=== PATIENT | female | born 1990 | race Caucasian/White ===

== ENCOUNTER 2016-08-01 16:19 | Emergency (ER) | payer OTHER ==
[~2016-08-01] VITALS: Ht 160 cm; Wt 160.0 kg
[~2016-08-01 16:19] MED LIST: BCPILLS PO; LORA-741 PO
[2016-08-01 16:29] VITALS: Ht 160 cm; Wt 160.0 kg
[2016-08-01] MEDS ORDERED: DiphenhydrAMINE HCL 50 MG/ML VIAL IV STA (16:47)
[2016-08-01] MEDS ORDERED: KETOROLAC TROMETHAMINE 30 MG/ML VIAL IV STA (16:47)
[2016-08-01] MEDS ORDERED: PROCHLORPERAZINE 5 MG/ML 2 ML VIAL IV STA (16:47)
[2016-08-01] MEDS ORDERED: SODIUM CHLORIDE 0.9% 1000ML 1,000 ML IV STA (16:47)
[2016-08-01] MEDS ORDERED: ASPI-391 PO (17:18)
[2016-08-01 17:22] LABS: BASO % 0.3 %; BASO ABS # 0.03 K/uL (0-0.2); COMPLETE YES; EOS % 1.1 %; IG% 0.5 %; LYMPH % 28.8 %; LYMPH ABS # 3.41 K/uL (1.2-3.4); MEAN CELL VOLUME 81.7 fL (80-100); MEAN CORPUSCULAR HEMOGLOBIN 28.1 pg (25-34); MEAN CORPUSCULAR HGB CONC 34.4 g/dl (32-36); MEAN PLATELET VOLUME 10.5 fL (7.4-10.4); MONO % 5.4 %; NEUT % 63.9 %; PLATELET COUNT 214 K/uL (130-400); RED BLOOD COUNT 4.16 M/uL (4.2-5.4); WHITE BLOOD COUNT 11.84 K/uL (4.8-10.8)
--- NOTE | 2016-08-01 17:36 | DIAGNOSTIC IMAGING REPORT ---
HEAD CT NONCONTRAST CT DOSE: 623.48 mGy.cm HISTORY: Mental status change trouble talking w/ tang TECHNIQUE: Multiaxial CT images of the head were performed without the use of intravenous contrast. Comparison: 04/19/2016 Findings: The paranasal sinuses and mastoid air cells are clear. The calvarium and skull base are intact. The ventricles and sulci are within normal limits. There is no mass, hematoma, midline shift, or acute infarct. Impression: No acute intracranial abnormality. Electronically signed by: Howard Manriquez M.D. 08/01/2016 5:34 PM Dictated Date/Time: 08/01/2016 5:34 PM
[2016-08-01 17:40] LABS: BUN/CREATININE RATIO 18.9 (10-20); CALCIUM 8.8 mg/dl (8.5-10.1); CREATININE 0.61 mg/dl (0.60-1.20); POTASSIUM 3.6 mmol/L (3.5-5.1)
--- NOTE | 2016-08-01 18:22 | DIAGNOSTIC IMAGING REPORT ---
Brain MRI WITHOUT CONTRAST HISTORY: Mental status change blurry vison SALGUERO TECHNIQUE: Multiplanar multisequence MRI of the brain was performed without the use of contrast. COMPARISON STUDY: CT brain same date FINDINGS: There are no areas of restricted diffusion to suggest acute infarction. The midline structures are intact. The paranasal sinuses are clear. The mastoid air cells are clear. The ventricles and sulci are within normal limits for age. There is no mass, hematoma, midline shift. The major vascular flow-voids at the skull base are well maintained. IMPRESSION: No acute intracranial abnormality. Electronically signed by: Howard Manrqiuez M.D. 08/01/2016 6:20 PM Dictated Date/Time: 08/01/2016 6:15 PM
--- NOTE | 2016-08-01 18:22 | DIAGNOSTIC IMAGING REPORT ---
CHEST ONE VIEW PORTABLE CLINICAL HISTORY: blurry vision mental status change COMPARISON STUDY: No previous studies for comparison. FINDINGS: The bones soft tissues and hemidiaphragms are normal. The cardiomediastinal silhouette is normal. The lungs are clear. The pulmonary vasculature is normal. IMPRESSION: Negative chest. Electronically signed by: Howard Manriquez M.D. 08/01/2016 6:21 PM Dictated Date/Time: 08/01/2016 6:21 PM
[2016-08-01 19:37] VITALS: BP 145/91; PULSE 65; TEMP 36.5; O2SAT 98
--- NOTE | 2016-08-01 21:48 | EMERGENCY ROOM VISIT NOTE ---
History Report prepared by Audi: Ricky Tucker Under the Supervision of: Dr. Deejay Seymour D.O. First contact with patient: 16:33 Chief Complaint: HEADACHE Stated Complaint: HEADACHE, NAUSEA, HARD TO FOCUS, FELLS HOT History of Present Illness The patient is a 25 year old female who presents to the Emergency Room with complaints of a constant headache starting about 9-10 days ago. The headache is located on the top of her head. She has worsening pain with coughing and deep breathing. She has taken Ibuprofen, Excedrin, and Toradol without relief. She also felt flushed and had some vision problems about 6 and a half hours ago which lasted for about 30-40 minutes. She never lost her vision but notes that it became narrow. She reports nausea but denies vomiting. As per family member , the patient also had some slurred speech. The patient currently feels at baseline. She currently only complains of the headache. Pt denies recent travels , fevers, loss of vision, trouble swallowing, blood in cough, neck pain, chest pain, shortness of breath, diarrhea, pain with urination, melena, tingling, weakness, and numbness. She has a history of Temple's palsy. She has not taken control medication for the past month. No previous blood clots. Headache did come on gradually and gradually worsened. Source of History: patient Onset: about 9-10 days ago Position: head Timing: constant Modifying Factors (Worsening): breathing (deep), other (cough) Modifying Factors (Relieving): ibuprofen (without relief), other (Excedrin, and Toradol without relief) Associated Symptoms: + nausea, No SOB, No chest pain, No diarrhea, No fevers , No neck pain, No numbness, No vomiting, No weakness Review of Systems See HPI for pertinent positives & negatives. A total of 10 systems reviewed and were otherwise negative. Past Medical & Surgical Medical Problems: (1) Abnormal vaginal bleeding (2) Temple's palsy (3) Dysfunctional uterine bleeding Surgical Problems: (1) History of appendectomy Family History Diabetes mellitus FH: cancer FH: gallbladder disease FH: heart disease FH: lung disease Hypertension Kidney stones Social History Smoking Status: Current Every Day Smoker Alcohol Use: occasionally Marital Status: single Occupation Status: employed Current/Historical Medications Scheduled PRN Hzttogv-Wwqldgfbksvwa-Eqnpujil (Excedrin Extra Strength), 3 TABS PO Q8 PRN for Pain Allergies Coded Allergies: Adhesives (Verified Allergy, Unknown, ., 04/19/16) Physical Exam Vital Signs Date Time Temp Pulse Resp B/P Pulse Ox O2 Delivery O2 Flow Rate FiO2 08/01/16 19:37 36.5 65 18 145/91 98 08/01/16 19:18 65 18 145/91 98 Room Air 08/01/16 16:29 36.5 65 18 158/96 98 Room Air Physical Exam GENERAL: Sitting up in bed, disheveled, alert, well appearing, well nourished, no distress, non-toxic EYE EXAM: normal conjunctiva, PERRL and EOM's intact OROPHARYNX: no exudate, no erythema, lips, buccal mucosa, and tongue normal and mucous membranes are moist NECK: supple, no nuchal rigidity, no adenopathy, non-tender LUNGS: Clear to auscultation. Normal chest wall mechanics HEART: no murmurs, S1 normal and S2 normal ABDOMEN: abdomen soft, non-tender, normo-active bowel sounds, no masses, no rebound or guarding. BACK: Back is symmetrical on inspection and there is no deformity, no midline tenderness, no CVA tenderness. SKIN: no rashes and no bruising UPPER EXTREMITIES: upper extremities are grossly normal. LOWER EXTREMITIES: No pitting edema. NEURO EXAM: Normal sensorium, cranial nerves II-XII intact, normal speech, no weakness of arms, no weakness of legs. No drift. Finger to nose intact. Gross sensation intact. Medical Decision & Procedures ER Provider Diagnostic Interpretation: Xray results per the radiologist and my interpretation. CT and MRI results have been interpreted by the radiologist and reviewed by me. Brain MRI WITHOUT CONTRAST HISTORY: Mental status change blurry vison SALGUERO TECHNIQUE: Multiplanar multisequence MRI of the brain was performed without the use of contrast. COMPARISON STUDY: CT brain same date FINDINGS: There are no areas of restricted diffusion to suggest acute infarction. The midline structures are intact. The paranasal sinuses are clear. The mastoid air cells are clear. The ventricles and sulci are within normal limits for age. There is no mass, hematoma, midline shift. The major vascular flow-voids at the skull base are well maintained. IMPRESSION: No acute intracranial abnormality. Electronically signed by: Howard Manriquez M.D. 08/01/2016 6:20 PM Dictated Date/Time: 08/01/2016 6:15 PM CHEST ONE VIEW PORTABLE CLINICAL HISTORY: blurry vision mental status change COMPARISON STUDY: No previous studies for comparison. FINDINGS: The bones soft tissues and hemidiaphragms are normal. The cardiomediastinal silhouette is normal. The lungs are clear. The pulmonary vasculature is normal. IMPRESSION: Negative chest. Electronically signed by: Howard Manriquez M.D. 08/01/2016 6:21 PM Dictated Date/Time: 08/01/2016 6:[address] CT DOSE: 623.48 mGy.cm HISTORY: Mental status change trouble talking w/ salguero TECHNIQUE: Multiaxial CT images of the head were performed without the use of intravenous contrast. Comparison: 04/19/2016 Findings: The paranasal sinuses and mastoid air cells are clear. The calvarium and skull base are intact. The ventricles and sulci are within normal limits. There is no mass, hematoma, midline shift, or acute infarct. Impression: No acute intracranial abnormality. Electronically signed by: Howard Manriquez M.D. 08/01/2016 5:34 PM Dictated Date/Time: 08/01/2016 5:34 PM Laboratory Results 08/01/16 17:07 Red Blood Count 4.16, Mean Corpuscular Volume 81.7, Mean Corpuscular Hemoglobin 28.1, Mean Corpuscular Hemoglobin Concent 34.4, Mean Platelet Volume 10.5, Neutrophils (%) (Auto) 63.9, Lymphocytes (%) (Auto) 28.8, Monocytes (%) (Auto) 5.4, Eosinophils (%) (Auto) 1.1, Basophils (%) (Auto) 0.3, Neutrophils # (Auto) 7.57, Lymphocytes # (Auto) 3.41, Monocytes # (Auto) 0.64, Eosinophils # (Auto) 0.13, Basophils # (Auto) 0.03 08/01/16 17:07 Test 08/01/16 17:07 White Blood Count 11.84 K/uL (4.8-10.8) Red Blood Count 4.16 M/uL (4.2-5.4) Hemoglobin 11.7 g/dL (12.0-16.0) Hematocrit 34.0 % (37-47) Mean Corpuscular Volume 81.7 fL (80-100) Mean Corpuscular Hemoglobin 28.1 pg (25-34) Mean Corpuscular Hemoglobin Concent 34.4 g/dl (32-36) Platelet Count 214 K/uL (130-400) Mean Platelet Volume 10.5 fL (7.4-10.4) Neutrophils (%) (Auto) 63.9 % Lymphocytes (%) (Auto) 28.8 % Monocytes (%) (Auto) 5.4 % Eosinophils (%) (Auto) 1.1 % Basophils (%) (Auto) 0.3 % Neutrophils # (Auto) 7.57 K/uL (1.4-6.5) Lymphocytes # (Auto) 3.41 K/uL (1.2-3.4) Monocytes # (Auto) 0.64 K/uL (0.11-0.59) Eosinophils # (Auto) 0.13 K/uL (0-0.5) Basophils # (Auto) 0.03 K/uL (0-0.2) RDW Standard Deviation 38.3 fL (36.4-46.3) RDW Coefficient of Variation 13.0 % (11.5-14.5) Immature Granulocyte % (Auto) 0.5 % Immature Granulocyte # (Auto) 0.06 K/uL (0.00-0.02) Anion Gap 10.0 mmol/L (3-11) Est Creatinine Clear Calc Drug Dose 208.7 ml/min Estimated GFR () 144.0 Estimated GFR (Non- 124.2 BUN/Creatinine Ratio 18.9 (10-20) Calcium Level 8.8 mg/dl (8.5-10.1) Laboratory results per my review. Medications Administered Medications (Trade) Dose Ordered Sig/Mk Route Start Time Stop Time Status Last Admin Dose Admin Sodium Chloride (Nss 1000ml) 1,000 ml @ 999 mls/hr Q1H1M STAT IV 08/01/16 16:47 08/01/16 17:47 DC 08/01/16 17:16 999 MLS/HR Ketorolac Tromethamine (Toradol Inj) 30 mg NOW STAT IV 08/01/16 16:47 08/01/16 16:49 DC 08/01/16 17:16 30 MG Prochlorperazine Edisylate (Compazine Inj) 5 mg NOW STAT IV 08/01/16 16:47 08/01/16 16:49 DC 08/01/16 17:17 5 MG Diphenhydramine HCl (Benadryl Inj) 25 mg NOW STAT IV 08/01/16 16:47 08/01/16 16:49 DC 08/01/16 17:17 25 MG ED Course ED COURSE: Vital signs were reviewed and showed hypertensive. The patients medical record was reviewed The above diagnostic studies were performed and reviewed. ED treatments and interventions as stated above. 1633: The patient was evaluated in room A12A. A complete history and physical examination was performed. 164: Benadryl Inj 25 mg IV, Compazine Inj 5 mg IV, Toradol Inj 30 mg IV, Sodium Chloride 1000 ml @ 999 mls/hr IV 191: Upon reevaluation, the patient is feeling much better. I discussed my findings with the patient and she understands and agrees with the treatment plan. Based on the patients age, coexisting illnesses, exam and lab findings the decision to treat as an outpatient was made. The patient remained stable while under my care. The patient appeared well at the time of discharge. Medical Decision Differential Diagnosis includes but is not limited to headache, tension headache , cluster headache, migraine, subarachnoid hemorrhage, meningitis, mass, central venous thrombus, concussion, trauma and epidural/subdural hemorrhage. Patient is a 25-year-old female who presents the ER for headache which is been present for the past nontender days. Patient denies any weakness or numbness in her arms. She did note that she had some garbled speech earlier today with the headache and talking to mother. She has no weakness or numbness in arms or legs. No fevers. No signs of meningitis or encephalitis on exam. Patient has no other complaints at this time. Completely neurologically intact. CT of the head was unremarkable. Vitals are stable. Labs show a white count of 11.8 thousand. BMP was unremarkable. Chest x-ray was unremarkable. MRI of the brain was normal. Based on her symptoms and the negative MRI do favor this is likely related to the headache. I offered LP but she declined following the risk and benefits were explained. Pain was improved significantly following the Benadryl, Compazine and Toradol. Patient has no other complaints at this time. She is discharged follow-up with her primary care doctor. Discussed with Pt concerning signs and symptoms to watch out for. Pt was instructed to follow up with their PCP and discussed with the patient their option to return to the ED at anytime for persistent or worsening symptoms. The appropriate anticipatory guidance and out-patient management, including indications for return to the emergency department, were explained at length to the patient and understood. Impression Primary Impression: Cephalgia Scribe Attestation The scribe's documentation has been prepared under my direction and personally reviewed by me in its entirety. I confirm that the note above accurately reflects all work, treatment, procedures, and medical decision making performed by me. Departure Information Dispostion Home / Self-Care Referrals Royer Casas M.D. Forms HOME CARE DOCUMENTATION FORM, IMPORTANT VISIT INFORMATION Patient Instructions Headache Pain, My [facility] Additional Instructions Please follow up with your primary care doctor with in the next 24 hours. Any worsening of your symptoms, please return to the ED immediately. This includes any change in vision, he was given 100.4, stiff neck, confusion, slurred speech , facial droop, weakness of arms or legs, or any other concerning signs or symptoms from your standpoint. Please take Motrin or Tylenol as needed for pain. Problem Qualifiers Primary Impression: Cephalgia Headache type: unspecified Headache chronicity pattern: acute headache Intractability: not intractable Qualified Codes: R51 - Headache
== END 2016-08-01 19:37 | disposition home or self-care (01) ==
LOC: C.EDB 16:20 → C.EDA 19:37
DX: R51 Headache (principal); G51.0 Bell's palsy; N93.8 Other specified abnormal uterine and vaginal bleeding; F17.210 Nicotine dependence, cigarettes, uncomplicated

== ENCOUNTER 2016-08-16 10:13 | Emergency (ER) | payer OTHER ==
[~2016-08-16 10:13] MED LIST changes: +ASPI-391 PO; -BCPILLS PO; -LORA-741 PO
[2016-08-16 10:19] VITALS: TEMP 36.6; Ht 160 cm
[2016-08-16] MEDS ORDERED: KETOROLAC TROMETHAMINE 60 MG/2 ML VIAL IM STA (10:30)
--- NOTE | 2016-08-16 10:35 | EMERGENCY ROOM VISIT NOTE ---
History First contact with patient: 10:23 Chief Complaint: FOOT PAIN Stated Complaint: LEFT ANKLE PAIN History of Present Illness The patient is a 25 year old female who presents to the Emergency Room with complaints of left foot and ankle pain. The patient states that pain started 2 days ago. She denies any known injuries. She reports pain in the foot and ankle. She reports swelling. She rates her discomfort a 9/10. She denies any fevers or redness. She denies any calf pain or swelling. She states she has had foot pain in the past but this is worse. She denies any history of gout. Review of Systems A 10 system review of systems was completed with positives and pertinent negatives listed in the HPI. Past Medical/Surgical History Medical Problems: (1) Abnormal vaginal bleeding (2) Temple's palsy (3) Dysfunctional uterine bleeding Surgical Problems: (1) History of appendectomy Family History Diabetes mellitus FH: cancer FH: gallbladder disease FH: heart disease FH: lung disease Hypertension Kidney stones Social History Smoking Status: Current Every Day Smoker Alcohol Use: occasionally Marital Status: single Occupation Status: employed Current/Historical Medications No Active Prescriptions or Reported Meds Allergies Coded Allergies: Adhesives (Verified Allergy, Unknown, ., 08/16/16) Physical Exam Vital Signs Date Time Temp Pulse Resp B/P Pulse Ox O2 Delivery O2 Flow Rate FiO2 08/16/16 13:28 85 140/94 97 08/16/16 11:28 79 104/65 97 08/16/16 10:19 36.6 92 18 126/86 99 Room Air Physical Exam VITALS: Vitals are noted on the nurse's note and reviewed by myself. Vital signs stable. The patient is afebrile. GENERAL: This is a 25-year-old female, in no acute distress, nondiaphoretic, well-developed well-nourished. SKIN: The skin was without rashes, erythema, or bruising. There is no tenting of the skin. Capillary reflex less than 2 seconds. HEAD: Normocephalic atraumatic. EARS: The external ears are normal in appearance. EYES: Pupils equal round and reactive to light and accommodation. Conjunctivae without injection, sclerae without icterus. Extraocular movements intact. NOSE: Patent, turbinates without inflammation or discharge. MOUTH: Mucous membranes moist. Tonsils are not enlarged. Pharynx without erythema or exudate. Uvula midline. Airway patent. Tongue does not deviate. NECK: Supple without nuchal rigidity. No JVD. HEART: Regular rate and rhythm without murmurs gallops or rubs. LUNGS: Clear to auscultation bilaterally without wheezes, rales or rhonchi. No retractions or accessory muscle use. MUSCULOSKELETAL: No muscle atrophy, erythema, noted. There is edema and significant tenderness noted to the lateral malleolus. There is no significant erythema or warmth. There is marked decreased range of motion of the left foot and ankle secondary to pain and swelling. Strength 5/5 throughout. NEURO: Patient was alert and oriented to person place and time. Normal sensation to light and sharp touch. No focal neurological deficits. Medical Decision & Procedures ER Provider Diagnostic Interpretation: [~ rep ct add3]] LEFT ANKLE 3 VIEWS CLINICAL HISTORY: Left ankle pain and swelling. FINDINGS: 3 views of left ankle are compared to study dated 11/25/2014. The skeletal structures are well mineralized. No fracture is seen. The ankle mortise is intact. There is no joint effusion. Mild soft tissue swelling is noted around the ankle and along the dorsal aspect of the foot. Degenerative spurring is seen along the dorsal aspect of the tarsal bones. IMPRESSION: Soft tissue swelling with no acute bony abnormality identified in the left ankle. LEFT FOOT MIN 3 VIEWS ROUTINE CLINICAL HISTORY: Left foot pain swelling COMPARISON: None. DISCUSSION: There is mild soft tissue swelling. No fractures or subluxations are visualized. There are no erosive or destructive changes. IMPRESSION: Soft tissue swelling. No acute fractures. No destructive lesions are visualized. Laboratory Results 08/16/16 11:23 Red Blood Count 4.19, Mean Corpuscular Volume 83.1, Mean Corpuscular Hemoglobin 28.9, Mean Corpuscular Hemoglobin Concent 34.8, Mean Platelet Volume 11.0, Neutrophils (%) (Auto) 73.7, Lymphocytes (%) (Auto) 18.8, Monocytes (%) (Auto) 6.2, Eosinophils (%) (Auto) 0.8, Basophils (%) (Auto) 0.2, Neutrophils # (Auto) 8.85, Lymphocytes # (Auto) 2.25, Monocytes # (Auto) 0.74, Eosinophils # (Auto) 0.10, Basophils # (Auto) 0.02 08/16/16 11:23 Test 08/16/16 11:23 White Blood Count 12.00 K/uL (4.8-10.8) Red Blood Count 4.19 M/uL (4.2-5.4) Hemoglobin 12.1 g/dL (12.0-16.0) Hematocrit 34.8 % (37-47) Mean Corpuscular Volume 83.1 fL (80-100) Mean Corpuscular Hemoglobin 28.9 pg (25-34) Mean Corpuscular Hemoglobin Concent 34.8 g/dl (32-36) Platelet Count 199 K/uL (130-400) Mean Platelet Volume 11.0 fL (7.4-10.4) Neutrophils (%) (Auto) 73.7 % Lymphocytes (%) (Auto) 18.8 % Monocytes (%) (Auto) 6.2 % Eosinophils (%) (Auto) 0.8 % Basophils (%) (Auto) 0.2 % Neutrophils # (Auto) 8.85 K/uL (1.4-6.5) Lymphocytes # (Auto) 2.25 K/uL (1.2-3.4) Monocytes # (Auto) 0.74 K/uL (0.11-0.59) Eosinophils # (Auto) 0.10 K/uL (0-0.5) Basophils # (Auto) 0.02 K/uL (0-0.2) RDW Standard Deviation 40.0 fL (36.4-46.3) RDW Coefficient of Variation 13.2 % (11.5-14.5) Immature Granulocyte % (Auto) 0.3 % Immature Granulocyte # (Auto) 0.04 K/uL (0.00-0.02) Erythrocyte Sedimentation Rate 34 mm/hr (0-21) Anion Gap 8.0 mmol/L (3-11) Estimated GFR () 133.0 Estimated GFR (Non- 114.8 BUN/Creatinine Ratio 13.4 (10-20) Uric Acid 5.7 mg/dl (2.6-7.2) Calcium Level 8.7 mg/dl (8.5-10.1) Total Bilirubin 0.5 mg/dl (0.2-1) Aspartate Amino Transf (AST/SGOT) 50 U/L (15-37) Alanine Aminotransferase (ALT/SGPT) 75 U/L (12-78) Alkaline Phosphatase 66 U/L (45-117) C-Reactive Protein 2.45 mg/dl (0-0.29) Total Protein 7.0 gm/dl (6.4-8.2) Albumin 3.3 gm/dl (3.4-5.0) Globulin 3.7 gm/dl (2.5-4.0) Albumin/Globulin Ratio 0.9 (0.9-2) Lyme Disease IgG Antibody NEG (NEG) Lyme Disease IgM Antibody NEG (NEG) Medications Administered Medications (Trade) Dose Ordered Sig/Mk Route Start Time Stop Time Status Last Admin Dose Admin Ketorolac Tromethamine (Toradol Inj) 60 mg NOW STAT IM 08/16/16 10:30 08/16/16 10:33 DC 08/16/16 10:36 60 MG Morphine Sulfate (MoRPHine SULFATE INJ) 4 mg NOW STAT IV 08/16/16 11:13 08/16/16 11:14 DC 08/16/16 11:30 4 MG ED Course The patient was seen and examined. Previous visits were reviewed. The patient did not have a fever. She does have a leukocytosis of 12. Her sedimentation rate is elevated at 34 and C-reactive protein elevated at 2.45. She does not have any significant electrolyte abnormality. AST is elevated at 50. Uric acid was not elevated at 5.7. Lyme titer was negative. X-rays revealed soft tissue swelling but no acute bony abnormality The patient was initially given 60 mg IM Toradol with no improvement in her symptoms She was then given 4 mg IV morphine with marked improvement in her pain The patient presents with atraumatic left foot and ankle pain. She does have obvious swelling but no obvious erythema or warmth. She has marked pain with joint loading or movement of the joint. Her pain is out of proportion to exam. This may represent gout. Although considered less likely, septic joint is in the differential. I discussed the case with Dr. Case. He recommends consultation with radiology orthopedics for potential aspiration. I discussed the case with Dr. Roe of radiology who states that they do not typically perform aspiration of this type I then discussed the case with Dr. Calvillo who recommended treating her for gout with steroids. Dr. Case would like the patient to be seen by orthopedics before starting management for gout and he discussed this with Dr. Calvillo. The patient will go directly to Dr. Calvillo's office. She was given crutches. She should return to the emergency Department with any worsening symptoms. Medical Decision The differential diagnosis includes septic arthritis, Lyme disease, gout, strain , sprain, fracture, osteomyelitis, osteoarthritis, among others Impression Primary Impression: Foot pain Additional Impression: Ankle pain Departure Information Dispostion Home / Self-Care Condition GOOD Prescriptions No Active Prescriptions or Reported Meds Referrals No Doctor, Assigned (PCP) Luis Calvillo, DO Patient Instructions Gout, My [facility] Additional Instructions Go directly to Dr. Calvillo's office for further evaluation and management Problem Qualifiers Primary Impression: Foot pain Laterality: left Qualified Codes: M79.672 - Pain in left foot Additional Impression: Ankle pain Laterality: left
--- NOTE | 2016-08-16 10:57 | DIAGNOSTIC IMAGING REPORT ---
LEFT ANKLE 3 VIEWS CLINICAL HISTORY: Left ankle pain and swelling. FINDINGS: 3 views of left ankle are compared to study dated 11/25/2014. The skeletal structures are well mineralized. No fracture is seen. The ankle mortise is intact. There is no joint effusion. Mild soft tissue swelling is noted around the ankle and along the dorsal aspect of the foot. Degenerative spurring is seen along the dorsal aspect of the tarsal bones. IMPRESSION: Soft tissue swelling with no acute bony abnormality identified in the left ankle. Electronically signed by: Tyrone Roe M.D. 08/16/2016 10:56 AM Dictated Date/Time: 08/16/2016 10:54 AM
--- NOTE | 2016-08-16 11:01 | DIAGNOSTIC IMAGING REPORT ---
LEFT FOOT MIN 3 VIEWS ROUTINE CLINICAL HISTORY: Left foot pain swelling COMPARISON: None. DISCUSSION: There is mild soft tissue swelling. No fractures or subluxations are visualized. There are no erosive or destructive changes. IMPRESSION: Soft tissue swelling. No acute fractures. No destructive lesions are visualized. Electronically signed by: Han Ansari M.D. 08/16/2016 11:00 AM Dictated Date/Time: 08/16/2016 10:54 AM
[2016-08-16] MEDS ORDERED: MoRPHine SULFATE 4 MG/ML 1 ML CARP\\VIAL IV STA (11:13)
[2016-08-16 11:40] LABS: BASO % 0.2 %; BASO ABS # 0.02 K/uL (0-0.2); COMPLETE YES; EOS % 0.8 %; HEMATOCRIT 34.8 % (37-47); IG% 0.3 %; LYMPH % 18.8 %; LYMPH ABS # 2.25 K/uL (1.2-3.4); MEAN CELL VOLUME 83.1 fL (80-100); MEAN CORPUSCULAR HEMOGLOBIN 28.9 pg (25-34); MEAN CORPUSCULAR HGB CONC 34.8 g/dl (32-36); MONO % 6.2 %; NEUT % 73.7 %; PLATELET COUNT 199 K/uL (130-400); RED BLOOD COUNT 4.19 M/uL (4.2-5.4)
[2016-08-16 12:00] LABS: ALT/SGPT 75 U/L (12-78); AST/SGOT 50 U/L (15-37); BLOOD UREA NITROGEN 10 mg/dl (7-18); BUN/CREATININE RATIO 13.4 (10-20); CALCIUM 8.7 mg/dl (8.5-10.1); CARBON DIOXIDE 27 mmol/L (21-32); CHLORIDE 105 mmol/L (98-107); CREATININE 0.72 mg/dl (0.60-1.20); GLUCOSE 126 mg/dl (70-99); POTASSIUM 3.8 mmol/L (3.5-5.1); SODIUM 140 mmol/L (136-145); URIC ACID 5.7 mg/dl (2.6-7.2)
[2016-08-16 12:03] LABS: ALB/GLOB RATIO 0.9 (0.9-2); ALKALINE PHOSPHATASE 66 U/L (45-117); C-REACTIVE PROTEIN 2.45 mg/dl (0-0.29)
[2016-08-16 12:25] LABS: LYME DISEASE AB IGG NEG (NEG); LYME DISEASE AB IGM NEG (NEG)
[2016-08-16 13:28] VITALS: BP 140/94; PULSE 85; O2SAT 97
== END 2016-08-16 13:29 | disposition home or self-care (01) ==
LOC: C.EDB 10:14 → C.EDA 13:29
DX: M79.672 Pain in left foot (principal); M25.572 Pain in left ankle and joints of left foot; F17.200 Nicotine dependence, unspecified, uncomplicated; Z90.89 Acquired absence of other organs; Z83.3 Family history of diabetes mellitus; Z82.49 Family history of ischemic heart disease and other diseases of the circulatory system; Z84.1 Family history of disorders of kidney and ureter

== ENCOUNTER → 2017-02-23 | Outpatient (CLI) | payer OTHER ==
--- NOTE | 2017-02-23 14:23 | DIAGNOSTIC IMAGING REPORT ---
LEFT WRIST MIN 3 VIEWS ROUTINE CLINICAL HISTORY: PAIN OF HAND//TENDINITIS OF THUMB pain COMPARISON: None. DISCUSSION: The bones and joint spaces appear intact. There is no evidence of fracture, dislocation or bony disease. There is no evidence for soft tissue swelling. IMPRESSION: Negative study. The above report was generated using voice recognition software. It may contain grammatical, syntax or spelling errors. Electronically signed by: Howard Manriquez M.D. 02/23/2017 2:22 PM Dictated Date/Time: 02/23/2017 2:22 PM
== END | disposition home or self-care (01) ==
LOC: C.LABPVFM 14:06
PROVIDERS: ATTEND Family Medicine
DX: M79.642 Pain in left hand (principal); M77.8 Other enthesopathies, not elsewhere classified

== ENCOUNTER → 2017-03-16 | Outpatient (CLI) | payer OTHER ==
[2017-03-18 01:39] LABS: CHLAMYDIA TRACH RNA*** NOT DETECTED (NOT DETECTED); GC (NEIS GONORRHOEAE)RNA** NOT DETECTED (NOT DETECTED)
== END | disposition home or self-care (01) ==
LOC: C.LABSPEC 11:06
PROVIDERS: ATTEND Physician Assistant
DX: Z01.419 Encounter for gynecological examination (general) (routine) without abnormal findings (principal)

== ENCOUNTER → 2017-03-16 | Outpatient (CLI) | payer OTHER | END | disposition home or self-care (01) | LOC: C.PAPS 11:31 | PROVIDERS: ATTEND Physician Assistant | DX: Z01.419 Encounter for gynecological examination (general) (routine) without abnormal findings (principal) ==

== ENCOUNTER → 2017-09-13 | Outpatient (CLI) | payer OTHER ==
[2017-09-13 14:54] LABS: HEP C IGG 13 YRS+OLDER_RFLX NEG (NEG)
[2017-09-15 03:21] LABS: HEPATITIS A IGM TC 51813E NON-REACTIVE (NON-REACTIVE); HEPATITIS B CORE IGM TC51854R NON-REACTIVE (NON-REACTIVE)
== END | disposition home or self-care (01) ==
LOC: C.LABPVFM 10:19
PROVIDERS: ATTEND Nurse Practitioner Family
DX: Z20.6 Contact with and (suspected) exposure to human immunodeficiency virus [HIV] (principal)

== ENCOUNTER → 2017-10-23 | Outpatient (CLI) | payer OTHER | END | disposition home or self-care (01) | LOC: C.LABPVFM 12:29 | PROVIDERS: ATTEND Nurse Practitioner | DX: Z20.2 Contact with and (suspected) exposure to infections with a predominantly sexual mode of transmission (principal) ==

== ENCOUNTER → 2017-10-31 | Outpatient (CLI) | payer OTHER ==
[2017-10-31 17:58] LABS: ALBUMIN 3.6 gm/dl (3.4-5.0); ALKALINE PHOSPHATASE 63 U/L (45-117); ALT/SGPT 73 U/L (12-78); AST/SGOT 39 U/L (15-37); BLOOD UREA NITROGEN 11 mg/dl (7-18); CALCIUM 8.8 mg/dl (8.5-10.1); CARBON DIOXIDE 27 mmol/L (21-32); CHOLESTEROL 190 mg/dl (0-200); CREATININE 0.59 mg/dl (0.60-1.20); GLUCOSE 96 mg/dl (70-99); LDL CHOLESTEROL CALCULATED 129 mg/dl; POTASSIUM 4.3 mmol/L (3.5-5.1); SODIUM 137 mmol/L (136-145); TOTAL PROTEIN 7.6 gm/dl (6.4-8.2)
[2017-11-01 06:38] LABS: HEMOGLOBIN A1C 6.4 % (4.5-5.6)
== END | disposition home or self-care (01) ==
LOC: C.LABPVFM 14:35
PROVIDERS: ATTEND Family Medicine
DX: F17.200 Nicotine dependence, unspecified, uncomplicated (principal)